=== PATIENT | female | born 1955 ===

== ENCOUNTER 2020-11-13 12:55 | Observation (INO) ==
[2020-11-13] MEDS ORDERED: Melatonin 3 MG TABLET PO PRN (20:26)
[2020-11-13] MEDS ORDERED: Acetaminophen 325 MG TABLET PO PRN (20:26)
[2020-11-13] MEDS ORDERED: Naloxone 0.4 MG/ML INJ IVP PRN (20:26)
[2020-11-13] MEDS: Ringers Solution, Lactated 1,000 ML IVC SCH (21:29)
[2020-11-13 21:40] LABS: Basophils % 0.2 %; Eosinophils # 0.1 K/mcL (0.0-0.6); Eosinophils % 1.8 %; Hemoglobin 7.3 g/dL (11.5-15.4); Immature Granulocytes % 0.4 % (0-4); Lymphocytes # 1.4 K/mcL (0.6-4.6); Lymphocytes % 25.7 %; Mean Corpuscular HGB Conc 31.7 g/dL (31.6-35.5); Mean Corpuscular Hemoglobin 26.4 pg (28.0-33.3); Mean Platelet Volume 8.4 fL (9.4-12.4); Monocytes # 0.5 K/mcL (0.0-1.3); Monocytes % 8.9 %; Neutrophils # 3.5 K/mcL (1.6-8.9); Platelet Count 364 K/mcL (140-400); Red Blood Count 2.77 M/mcL (3.82-4.97); Red Cell Distribution Width 14.6 % (11.5-14.5); White Blood Count 5.6 K/mcL (4.3-11.1)
[2020-11-13 21:48] LABS: INR 1.2; Prothrombin Time 13.5 Seconds (9.4-12.1)
[2020-11-13 21:50] LABS: Activated Partial Thrombo Time 26.6 Seconds (26.0-36.0)
[2020-11-13 22:01] LABS: Alanine Aminotransferase 8 Units/L (7-52); Albumin 3.3 g/dL (3.5-5.7); Albumin/Globulin Ratio 1.2 (1.1-2.2); Alkaline Phosphatase 53 Units/L (34-104); Aspartate Amino Transferase 9 Units/L (13-39); BUN/Creatinine Ratio 36 (6-26); Bilirubin,Total 0.8 mg/dL (0.3-1.0); Blood Urea Nitrogen 17 mg/dL (8-23); Calcium 8.4 mg/dL (8.6-10.3); Carbon Dioxide 26 mEq/L (23-29); Chloride 104 mEq/L (98-107); Globulin 2.8 g/dL (2.4-3.5); Glucose 97 mg/dL (70-105); Magnesium 1.8 mg/dL (1.6-2.6); Osmolality,Calculated 287 (280-300); Phosphorous 3.6 mg/dL (2.7-4.5); Potassium 3.6 mEq/L (3.5-5.1); Sodium 138 mEq/L (136-145); Total Protein 6.1 g/dL (6.4-8.9); eGFR For African Americans > 60 (> 60); eGFR For Non-African Americans > 60 (> 60)
[2020-11-13 22:02] LABS: Troponin I < 0.03 ng/mL (< 0.04)
[2020-11-14] MEDS: Ringers Solution, Lactated 1,000 ML IVC SCH (05:20)
[2020-11-14 05:43] LABS: Bilirubin,Urine Negative (Negative); Blood,Urine Negative (Negative); Clarity,Urine Clear (Clear); Color,Urine Light-Yellow (Yellow); Glucose,Urine (UA) Normal (Normal); Ketones,Urine Negative (Negative); Leukocyte Esterase,Urine Trace (Negative); Mucus,Urine Few per lpf (None-Few); Nitrite,Urine Negative (Negative); Protein,Urine Negative (Neg-Trace); RBC,Urine 0-3 per hpf (0-3); Specific Gravity,Urine 1.012 (1.010-1.025); Urobilinogen,Urine Normal (Normal)
[2020-11-14] MEDS ORDERED: *HR* Enoxaparin 40 MG/0.4 ML SYRINGE SQ SCH (06:00)
[2020-11-14] MEDS ORDERED: Pantoprazole 40 MG VIAL IVP SCH (06:00)
[2020-11-14 06:34] LABS: Basophils % 0.2 %; Eosinophils # 0.1 K/mcL (0.0-0.6); Eosinophils % 2.6 %; Hematocrit 22.6 % (35.3-44.9); Immature Granulocytes % 0.4 % (0-4); Lymphocytes # 1.6 K/mcL (0.6-4.6); Lymphocytes % 33.3 %; Mean Corpuscular Hemoglobin 25.9 pg (28.0-33.3); Mean Corpuscular Volume 83.7 fL (83.0-100.0); Mean Platelet Volume 8.3 fL (9.4-12.4); Monocytes # 0.4 K/mcL (0.0-1.3); Monocytes % 8.8 %; Neutrophils # 2.5 K/mcL (1.6-8.9); Platelet Count 359 K/mcL (140-400); Red Cell Distribution Width 14.8 % (11.5-14.5); Segmented Neutrophils % 54.7 %; White Blood Count 4.7 K/mcL (4.3-11.1)
[2020-11-14 07:00] LABS: BUN/Creatinine Ratio 25 (6-26); Blood Urea Nitrogen 14 mg/dL (8-23); Calcium 8.6 mg/dL (8.6-10.3); Carbon Dioxide 28 mEq/L (23-29); Chloride 106 mEq/L (98-107); Glucose 97 mg/dL (70-105); Osmolality,Calculated 288 (280-300); Sodium 139 mEq/L (136-145); eGFR For African Americans > 60 (> 60); eGFR For Non-African Americans > 60 (> 60)
[2020-11-14] MEDS ORDERED: 0.9 % Sodium Chloride 250 ML ONE (08:56)
[2020-11-14 09:42] LABS: % Iron Saturation 2 % (15-50); Iron 10 mcg/dL (50-170); Transferrin 294 mg/dL (203-362)
[2020-11-14 10:00] LABS: Ferritin 8 ng/mL (10-120)
[2020-11-14] MEDS ORDERED: Iron Sucrose Complex 400 MG in 0.9 % Sodium Chloride 250 ML IVPB ONE (11:02)
[2020-11-14 12:21] LABS: Hematocrit 25.5 % (35.3-44.9)
[2020-11-14] MEDS ORDERED: Cyanocobalamin (B-12) 1,000 MCG/ML VIAL SQ SCH (12:44)
[2020-11-14] MEDS ORDERED: 0.9 % Sodium Chloride 1,000 ML IVC SCH (14:45)
[2020-11-14] MEDS ORDERED: Lidocaine -MPF 2% 2 ML VIAL ONE (14:47)
[2020-11-14] MEDS ORDERED: *HR* Propofol 200 MG/20 ML VIAL IVP ONE ×2 (14:47)
[2020-11-14] MEDS ORDERED: Sucralfate 1 GM TABLET PO SCH (16:30)
[2020-11-14 17:21] VITALS: BP 135/86
== END 2020-11-14 17:53 | disposition home or self-care (01) ==
LOC: 3ANU → SUATTDRO 18:29
PROVIDERS: ADMIT General Practice; ATTEND Internal Medicine
PROC: ENDOEBX (2020-11-14 14:00)